=== PATIENT | female | born 1995 ===

== ENCOUNTER 2021-10-22 16:34 | Emergency (ER) | payer SELFPAY ==
[2021-10-22 17:10] VITALS: BP 128/85
== END 2021-10-22 19:15 | disposition left against medical advice (07) ==
LOC: ED 16:34
DX: O20.8 Other hemorrhage in early pregnancy (principal); Z3A.00 Weeks of gestation of pregnancy not specified; Z53.21 Procedure and treatment not carried out due to patient leaving prior to being seen by health care provider